=== PATIENT | male | born 1945 | race Caucasian/White ===

== ENCOUNTER → 2016-07-21 | Outpatient (CLI) | payer OTHER ==
[~2016-07-21] MED LIST: ALPR-411 PO; ASPCH81X PO; FLV400 PO; FLVUNK PO; Lisinopril/Hctz PO; MAGN1CAP2 PO; MULT-506 PO; NRV5 PO; THM100 PO; [UNRECOGNIZED DRUG - CODE] PO
[2016-07-21 16:18] LABS: ALB/GLOB RATIO 1.3 (0.9-2); AST/SGOT 16 U/L (15-37); BLOOD UREA NITROGEN 23 mg/dl (7-18); BUN/CREATININE RATIO 13.8 (10-20); CALCIUM 8.7 mg/dl (8.5-10.1); CARBON DIOXIDE 24 mmol/L (21-32); CHLORIDE 103 mmol/L (98-107); CHOLESTEROL 116 mg/dl (0-200); GLUCOSE 93 mg/dl (70-99); POTASSIUM 4.6 mmol/L (3.5-5.1); SODIUM 135 mmol/L (136-145); TRIGLYCERIDES 137 mg/dl (0-150); VERY LOW DENSITY LIPOPROT CALC 27 mg/dl
[2016-07-21 16:23] LABS: ALKALINE PHOSPHATASE 68 U/L (45-117); ALT/SGPT 22 U/L (12-78); CHOLESTEROL/HDL RATIO 2.9; HDL CHOLESTEROL 40 mg/dl
--- NOTE | 2016-10-09 09:45 | CODING QUERY MEDICAL NECESSITY ---
CQSUPPORTING DIAGNOSIS NEEDED A supporting diagnosis is required for the test/procedure performed on this patient in order for us to be reimbursed by the patient's insurance. Please provide a supporting diagnosis for the following test/procedure listed below next to the test name along with your signature. *If there is no additional diagnosis for this patient that would support the following test/procedure please document that below next to the test/procedure. Test(s)/Procedure(s) that require a supporting diagnosis: DOS 07/21/16 PROSTATE SPECIFIC TEST Provider Signature: Date: Thank you Marline Todd [employer] Once completed, please kindly fax back to [phone] For questions please call [phone]
== END | disposition home or self-care (01) ==
LOC: C.LABMFLN 07:47
PROVIDERS: ATTEND Family Medicine
DX: I10 Essential (primary) hypertension (principal); E78.00 Pure hypercholesterolemia, unspecified; G47.00 Insomnia, unspecified; Z12.5 Encounter for screening for malignant neoplasm of prostate

== ENCOUNTER → 2017-12-21 | Outpatient (CLI) | payer OTHER ==
[~2017-12-21] MED LIST changes: +THIA100T27 PO; -THM100 PO
[2017-12-21 14:10] LABS: ALT/SGPT 19 U/L (12-78); BLOOD UREA NITROGEN 13 mg/dl (7-18); CALCIUM 8.8 mg/dl (8.5-10.1); CARBON DIOXIDE 26 mmol/L (21-32); CHOLESTEROL 105 mg/dl (0-200); CREATININE 1.29 mg/dl (0.60-1.40); GLUCOSE 95 mg/dl (70-99); LDL CHOLESTEROL CALCULATED 37 mg/dl; POTASSIUM 4.6 mmol/L (3.5-5.1); SODIUM 126 mmol/L (136-145)
== END | disposition home or self-care (01) ==
LOC: C.LABMFLN 07:08
PROVIDERS: ATTEND Family Medicine
DX: I10 Essential (primary) hypertension (principal); E78.00 Pure hypercholesterolemia, unspecified; Z12.5 Encounter for screening for malignant neoplasm of prostate

== ENCOUNTER → 2017-12-23 | Outpatient (CLI) | payer OTHER | END | disposition home or self-care (01) | LOC: C.LABMFLN 08:34 | PROVIDERS: ATTEND Family Medicine | DX: E87.1 Hypo-osmolality and hyponatremia (principal) ==

== ENCOUNTER → 2017-12-25 | Outpatient (CLI) | payer OTHER | END | disposition home or self-care (01) | LOC: C.LABMFLN 07:02 | PROVIDERS: ATTEND Family Medicine | DX: E22.2 Syndrome of inappropriate secretion of antidiuretic hormone (principal) ==

== ENCOUNTER → 2017-12-31 | Outpatient (CLI) | payer OTHER | END | disposition home or self-care (01) | LOC: C.LABMFLN 07:01 | PROVIDERS: ATTEND Family Medicine | DX: E87.1 Hypo-osmolality and hyponatremia (principal) ==

== ENCOUNTER → 2018-01-19 | Outpatient (CLI) | payer OTHER ==
[2018-01-19 14:17] LABS: BLOOD UREA NITROGEN 12 mg/dl (7-18); CARBON DIOXIDE 27 mmol/L (21-32); CREATININE 1.28 mg/dl (0.60-1.40); GLUCOSE 106 mg/dl (70-99); POTASSIUM 4.2 mmol/L (3.5-5.1); SODIUM 132 mmol/L (136-145)
[2018-01-19 19:04] LABS: ALBUMIN 3.8 gm/dl (3.4-5.0); TOTAL PROTEIN 6.7 gm/dl (6.4-8.2)
== END | disposition home or self-care (01) ==
LOC: C.LABMFLN 07:02
PROVIDERS: ATTEND Family Medicine
DX: F10.20 Alcohol dependence, uncomplicated (principal); E87.1 Hypo-osmolality and hyponatremia

== ENCOUNTER 2025-01-23 19:48 | Inpatient (IN) ==
[2025-01-23 20:08] LABS: Hematocrit (blood only) 30.1 % (42.0-52.0); Hemoglobin 10.0 g/dl (14.0-18.0); Immature Granulocytes # (auto) 0.03 K/uL (0.01-0.20); Immature Granulocytes % (auto) 0.4 %; Mean Corpuscular Hemoglobin 31.4 pg (25.0-34.0); Mean Corpuscular Volume 94.7 fL (80.0-100.0); Platelet Count 271 K/uL (130-400); RDW Standard Deviation 47.3 fL (36.4-46.3); Red Blood Count 3.18 M/uL (4.70-6.10); White Blood Count 7.25 K/ul (4.8-10.8)
--- NOTE | 2025-01-23 20:17 | Emergency Department Note ---
Impression & Plan Syncope and collapse, SHELLY (acute kidney injury), Bradycardia ED Provider Note NAME: QUEENIE CAIN AGE: 79 SEX: M : 1945 ARRIVES VIA: Ambulance INFORMANT: Patient, ED PROVIDER(S): Austen Yousif MD CHIEF COMPLAINT: Syncope MEDICAL DECISION MAKING: Patient presents due to concern for syncope. The patient may have an element of positional syncope but the patient did not have any prodromal symptoms. No tongue biting or incontinence. IV was established and blood work was obtained along with an EKG. Patient is noted to be bradycardic which may also be contributory. The patient's BSG was 109 prior to arrival. Patient's blood work shows a normal white count hemoglobin of 10. Platelet count is unremarkable. Patient's kidney function with likely SHELLY with creatinine 2.41. TSH is low but free T4 also low may also be contributory. Troponin negative. Chest x-ray obtained and unremarkable. Given the patient's SHELLY and syncope the patient would benefit from admission. 1 L of IV fluids ordered. I did speak with Dr. Jean-Baptiste and the patient was admitted to the medicine service. Discussion w/ other healthcare providers: Dr. Bermudez inpatient medicine service Prior /Outside records reviewed: None Differential diagnosis: Diagnostics, as interpreted by me: ECG: Sinus bradycardia, rate of 46, normal intervals, normal axis no ST elevations Cardiac monitoring: An order was placed for continuous cardiac monitoring. The monitor shows a rate of 52 with sinus rhythm. Patient was placed on pulse oximetry Medical decision rules: None Imaging studies: I informally interpreted the patient's chest x-ray does not show obvious pneumonia with formal report to follow. HPI: Pt is a 79 yo male with PMH of CKD stage 3, HTN, hx of squamous cell oropharyngeal cancer, and hx of seizure following tooth extraction who presents with concern after syncopal episode at home. Pt states he was assisting his from the commode, he bent forward and as he stood up he passed out. Pt denies injury from falling when he lost consciousness. He denies any presyncopal events such as dizziness, SOB, or chest pain. Pt states he has had 2 episode of syncope in the past, the first one was in the late 1960's and the last was 7-8 years ago. Pt saw he PCP a couple weeks after the last episode, but was no worked up. Pt does not recall having a seizure and does not know if he takes medication for seizure prevention. Pt denies hx of cardiac issues, but has been told he has a slow heart rate in the past. He does not recall any interventions for bradycardia and does not follow with cardiology. Pt states he has been feeling well over the last few weeks and denies illness, fever/chills, chest pain, SOB, extremity numbness/tingling, abdominal pain, N/V/D/C, dysuria, headaches or vertigo. Pt endorses a hx of tobacco and alcohol use, but quit both substances approx 5 years ago. Pt denies any recreational substance use. Pt states he has been eating and drinking well. He has been working to gain some weight and he has recently gained 2 lbs. Pt confirms he is taking amlodipine, aspirin, atorvastatin, and folic acid. He is unsure about taking divalproex and donepezil or what he would be taking them for. PAST MEDICAL HISTORY: See Below PAST SURGICAL HISTORY: See Below SOCIAL HISTORY: See Below HOME MEDICATIONS: See Below ALLERGIES: See Below VITALS: See Below PHYSICAL EXAMINATION: GENERAL: NAD, non-toxic. EYE EXAM: Normal conjunctiva. PERRL, no anisocoria and EOM's grossly intact w/o pain. OROPHARYNX: Moist mucus membranes, grossly normal dentition. NECK: Trachea midline, no stridor. LUNGS: Clear to auscultation. Normal chest wall mechanics. HEART: NSR, no MRG. ABDOMEN: Abdomen soft, non-tender, no masses, no rebound or guarding. BACK: No CVA TTP. SKIN: No rashes and no bruising. UPPER EXTREMITIES: Upper extremities are grossly normal. LOWER EXTREMITIES: Grossly normal, no edema. NEURO EXAM: Awake and alert, follows commands, no obvious facial asymmetry, normal speech, moves all 4 extremities. Past Med/Surg History Problem List (Updated 01/24/25 @ 14:09 by Austen Yousif MD) Bradycardia (Acute) SHELLY (acute kidney injury) (Acute) Hypomagnesemia Acute kidney injury superimposed on CKD Syncope and collapse (Acute) Hypercholesterolemia CKD stage G3b/A1, GFR 30-44 and albumin creatinine ratio <30 mg/g Hypotension Squamous cell carcinoma of oropharynx Encounter for pre-operative examination Impaired fasting glucose Hypertension Medical History Anemia Seizure during tooth extraction done with local-- had grand mal seizure/was admitted to hospital and then had teeth extraction without issue-- per patient, was told it was likely a reaction to the epinephrine* Lesion of soft palate Stage 3 chronic kidney disease due to benign hypertension Surgical History H/O oral surgery Family History Father Hypertension Cardiac disorder Myocardial infarction Mother Anxiety Depression Grandfather (Maternal) Lung cancer Other No family history of adverse response to anesthesia No family history of bleeding disorder Denies family history of Ovarian cancer Prostate cancer Breast cancer Social History Smoking Status: Former smoker Tobacco Type: Cigarettes Age Started Using Tobacco: 26; packs per day: 0.50; Cigarettes Per Day: 0.50 ppd x 40 years; Second Hand Exposure: No; Do You Dip or Chew Tobacco: No; Hx Alcohol Use: No Hx Substance Use: No Preferred Language: Nepali Communication Ability: Effective Visual Impairment: Limited Hearing Ability: Normal Play Therapist Required: No Beliefs That Will Affect Care: None marital status: Current Living Situation: Spouse current occupational status: retired How many Children do You have: 2 Other Information That Helps Us Care for You: No Feels Safe at Home: Yes Safety Concerns: Feels Safe At This Time Childhood Exposure to Second-Hand Smoke: Yes (father smoked a pipe) Diet: regular Diet Comment: Regular diet caffeine: Yes (Coffee ) during the past year weight has: decreased > 10 lbs Dental Care, Regularly: No Physical Activity Frequency: Daily Seatbelt Use: always Sunscreen Use: Yes Do you think of yourself as: straight/heterosexual Assistive Devices: None Allergies Allergies Allergy/AdvReac Type Severity Reaction Status Date / Time epinephrine Allergy Intermediate seizure Verified 01/23/25 21:54 (see comments) procaine Allergy Unknown seizure Verified 01/23/25 21:54 (see comments) Home Meds Home Medications Medication Instructions Recorded Confirmed aspirin 81 mg chewable tablet 81 mg PO HS 01/23/25 01/23/25 donepezil 10 mg tablet 10 mg PO DAILY 01/23/25 01/23/25 Previous Rx's Medication Instructions Recorded multivitamin 1 tab PO QAM #90 tabs 10/17/19 amlodipine 5 mg tablet 5 mg PO DAILY #90 tabs 07/18/20 thiamine HCl (vitamin B1) 100 mg 100 mg PO QAM #90 tabs 10/19/20 tablet folic acid 1 mg tablet See Rx Instructions .Route 02/28/21 .COMPLEX #90 tabs labetalol 100 mg tablet 100 mg PO BID #180 tabs 03/28/21 atorvastatin 40 mg tablet 40 mg PO HS #90 tabs 04/15/21 Results & Data (ED) Vital Signs Vital Signs - 24 hr 01/23/25 19:51 01/23/25 19:51 01/23/25 19:56 Temperature Temperature Source Pulse Rate - Lying Pulse Rate - Sitting Pulse Rate - Standing Pulse Rate 46 L Pulse Rate [Apical] Pulse Rate [Finger] Pulse Rate from SpO2 Sensor Pulse Rhythm [Apical] Respiratory Rate Respiratory Effort / Characteristics Respiratory Depth Respiratory Pattern Blood Pressure - Lying Blood Pressure - Sitting Blood Pressure- Standing Blood Pressure Blood Pressure [Left Arm] Blood Pressure [Right Arm] Blood Pressure Mean Blood Pressure Mean [Left Arm] Blood Pressure Mean [Right Arm] Blood Pressure Position [Left Arm] Pulse Oximetry 98 98 Oxygen Delivery Method Room Air Room Air Sepsis Recent Fever Within 48 Hours Sepsis New/Unexplained Change in Mental Status Sepsis Action Taken by Nursing EWS Level of Consciousness - Last Result EWS Temperature - Last Result EWS Respiratory Rate - Last Result EWS Oxygen Saturation - Last Result EWS Oxygen in Use - Last Result EWS Score EWS Clinical Risk 01/23/25 19:58 01/23/25 20:00 01/23/25 20:01 Temperature 36.7 C Temperature Source Oral Pulse Rate - Lying Pulse Rate - Sitting Pulse Rate - Standing Pulse Rate 50 L 51 L Pulse Rate [Apical] Pulse Rate [Finger] Pulse Rate from SpO2 Sensor 51 L Pulse Rhythm [Apical] Respiratory Rate 14 15 Respiratory Effort / Characteristics Non-Labored Spontaneous Respiratory Depth Normal Respiratory Pattern Regular Blood Pressure - Lying Blood Pressure - Sitting Blood Pressure- Standing Blood Pressure 147/61 H 147/61 H 133/72 Blood Pressure [Left Arm] Blood Pressure [Right Arm] Blood Pressure Mean 89 89 103 Blood Pressure Mean [Left Arm] Blood Pressure Mean [Right Arm] Blood Pressure Position [Left Arm] Pulse Oximetry 98 97 Oxygen Delivery Method Room Air Sepsis Recent Fever Within 48 Hours No Sepsis New/Unexplained Change in Mental Status N/A Sepsis Action Taken by Nursing No Action Required EWS Level of Consciousness - Last Result EWS Temperature - Last Result EWS Respiratory Rate - Last Result EWS Oxygen Saturation - Last Result EWS Oxygen in Use - Last Result EWS Score EWS Clinical Risk 01/23/25 20:33 01/23/25 20:45 01/23/25 21:30 Temperature Temperature Source Pulse Rate - Lying Pulse Rate - Sitting Pulse Rate - Standing Pulse Rate 49 L 48 L 48 L Pulse Rate [Apical] Pulse Rate [Finger] Pulse Rate from SpO2 Sensor 49 L 48 L 46 L Pulse Rhythm [Apical] Respiratory Rate 18 16 16 Respiratory Effort / Characteristics Respiratory Depth Respiratory Pattern Blood Pressure - Lying Blood Pressure - Sitting Blood Pressure- Standing Blood Pressure 126/58 L 117/57 L Blood Pressure [Left Arm] Blood Pressure [Right Arm] Blood Pressure Mean 80 77 Blood Pressure Mean [Left Arm] Blood Pressure Mean [Right Arm] Blood Pressure Position [Left Arm] Pulse Oximetry 97 97 96 Oxygen Delivery Method Sepsis Recent Fever Within 48 Hours Sepsis New/Unexplained Change in Mental Status Sepsis Action Taken by Nursing EWS Level of Consciousness - Last Result EWS Temperature - Last Result EWS Respiratory Rate - Last Result EWS Oxygen Saturation - Last Result EWS Oxygen in Use - Last Result EWS Score EWS Clinical Risk 01/23/25 22:15 01/23/25 22:55 01/23/25 23:00 Temperature Temperature Source Pulse Rate - Lying 53 L Pulse Rate - Sitting 52 L Pulse Rate - Standing 65 Pulse Rate 51 L Pulse Rate [Apical] 55 L Pulse Rate [Finger] Pulse Rate from SpO2 Sensor 51 L Pulse Rhythm [Apical] Respiratory Rate 19 17 Respiratory Effort / Characteristics Non-Labored Spontaneous Respiratory Depth Normal Respiratory Pattern Regular Blood Pressure - Lying 124/61 Blood Pressure - Sitting 123/55 L Blood Pressure- Standing 118/63 Blood Pressure 120/94 Blood Pressure [Left Arm] Blood Pressure [Right Arm] 117/78 Blood Pressure Mean 102 Blood Pressure Mean [Left Arm] Blood Pressure Mean [Right Arm] 91 Blood Pressure Position [Left Arm] Pulse Oximetry 97 97 Oxygen Delivery Method Room Air Sepsis Recent Fever Within 48 Hours Sepsis New/Unexplained Change in Mental Status Sepsis Action Taken by Nursing EWS Level of Consciousness - Last Result EWS Temperature - Last Result EWS Respiratory Rate - Last Result EWS Oxygen Saturation - Last Result EWS Oxygen in Use - Last Result EWS Score EWS Clinical Risk 01/23/25 23:53 01/24/25 00:00 01/24/25 00:30 Temperature Temperature Source Pulse Rate - Lying Pulse Rate - Sitting Pulse Rate - Standing Pulse Rate 58 L 51 L Pulse Rate [Apical] 52 L Pulse Rate [Finger] Pulse Rate from SpO2 Sensor Pulse Rhythm [Apical] Regular Respiratory Rate 17 Respiratory Effort / Characteristics Non-Labored Spontaneous Respiratory Depth Normal Respiratory Pattern Regular Blood Pressure - Lying Blood Pressure - Sitting Blood Pressure- Standing Blood Pressure Blood Pressure [Left Arm] Blood Pressure [Right Arm] 109/66 Blood Pressure Mean Blood Pressure Mean [Left Arm] Blood Pressure Mean [Right Arm] 80 Blood Pressure Position [Left Arm] Pulse Oximetry 95 Oxygen Delivery Method Room Air Sepsis Recent Fever Within 48 Hours Sepsis New/Unexplained Change in Mental Status Sepsis Action Taken by Nursing EWS Level of Consciousness - Last Result EWS Temperature - Last Result EWS Respiratory Rate - Last Result EWS Oxygen Saturation - Last Result EWS Oxygen in Use - Last Result EWS Score EWS Clinical Risk 01/24/25 00:53 01/24/25 02:37 01/24/25 02:37 Temperature 36.2 C L 36.4 C L Temperature Source Oral Oral Pulse Rate - Lying Pulse Rate - Sitting Pulse Rate - Standing Pulse Rate Pulse Rate [Apical] Pulse Rate [Finger] 53 L 54 L Pulse Rate from SpO2 Sensor Pulse Rhythm [Apical] Respiratory Rate 18 16 Respiratory Effort / Characteristics Respiratory Depth Normal Respiratory Pattern Blood Pressure - Lying Blood Pressure - Sitting Blood Pressure- Standing Blood Pressure Blood Pressure [Left Arm] 118/66 Blood Pressure [Right Arm] 141/66 H Blood Pressure Mean Blood Pressure Mean [Left Arm] 83 Blood Pressure Mean [Right Arm] 91 Blood Pressure Position [Left Arm] Semi-fowlers Pulse Oximetry 95 97 Oxygen Delivery Method Room Air Room Air Sepsis Recent Fever Within 48 Hours Sepsis New/Unexplained Change in Mental Status Sepsis Action Taken by Nursing EWS Level of Consciousness - Last Result Spontaneously Alert EWS Temperature - Last Result 36.2 EWS Respiratory Rate - Last Result 18 EWS Oxygen Saturation - Last Result 95 EWS Oxygen in Use - Last Result No EWS Score 1 EWS Clinical Risk Low Risk 01/24/25 06:45 01/24/25 07:32 01/24/25 07:33 Temperature 36.4 C L Temperature Source Oral Pulse Rate - Lying Pulse Rate - Sitting Pulse Rate - Standing Pulse Rate 48 L Pulse Rate [Apical] Pulse Rate [Finger] 43 L Pulse Rate from SpO2 Sensor Pulse Rhythm [Apical] Respiratory Rate 18 Respiratory Effort / Characteristics Respiratory Depth Respiratory Pattern Blood Pressure - Lying Blood Pressure - Sitting Blood Pressure- Standing Blood Pressure Blood Pressure [Left Arm] 151/75 H Blood Pressure [Right Arm] Blood Pressure Mean Blood Pressure Mean [Left Arm] 100 Blood Pressure Mean [Right Arm] Blood Pressure Position [Left Arm] Pulse Oximetry 94 Oxygen Delivery Method Room Air Sepsis Recent Fever Within 48 Hours Sepsis New/Unexplained Change in Mental Status Sepsis Action Taken by Nursing EWS Level of Consciousness - Last Result Spontaneously Alert EWS Temperature - Last Result 36.4 EWS Respiratory Rate - Last Result 18 EWS Oxygen Saturation - Last Result 94 EWS Oxygen in Use - Last Result No EWS Score 2 EWS Clinical Risk Low Risk 01/24/25 08:50 01/24/25 11:20 01/24/25 11:22 Temperature 36.6 C Temperature Source Oral Pulse Rate - Lying 52 L Pulse Rate - Sitting 55 L Pulse Rate - Standing 67 Pulse Rate Pulse Rate [Apical] Pulse Rate [Finger] 54 L Pulse Rate from SpO2 Sensor Pulse Rhythm [Apical] Respiratory Rate 18 Respiratory Effort / Characteristics Respiratory Depth Respiratory Pattern Blood Pressure - Lying 153/88 H Blood Pressure - Sitting 146/61 H Blood Pressure- Standing 146/70 H Blood Pressure Blood Pressure [Left Arm] 146/61 H Blood Pressure [Right Arm] Blood Pressure Mean Blood Pressure Mean [Left Arm] 89 Blood Pressure Mean [Right Arm] Blood Pressure Position [Left Arm] Pulse Oximetry 99 Oxygen Delivery Method Room Air Sepsis Recent Fever Within 48 Hours Sepsis New/Unexplained Change in Mental Status Sepsis Action Taken by Nursing EWS Level of Consciousness - Last Result Spontaneously Alert EWS Temperature - Last Result 36.6 EWS Respiratory Rate - Last Result 18 EWS Oxygen Saturation - Last Result 99 EWS Oxygen in Use - Last Result No EWS Score 0 EWS Clinical Risk Low Risk Home Medications Current Medication List: was personally reviewed by me Laboratory Data Attestation: I reviewed the patient's lab results. 01/24/25 05:21 01/24/25 05:21 Lab Results 01/23/25 01/23/25 01/24/25 Range/Units 19:50 22:36 05:21 WBC 7.25 5.65 (4.8-10.8) K/ul RBC 3.18 L 3.08 L (4.70-6.10) M/uL Hgb 10.0 L 9.6 L (14.0-18.0) g/dl Hct 30.1 L 29.3 L (42.0-52.0) % MCV 94.7 95.1 (80.0-100.0) fL MCH 31.4 31.2 (25.0-34.0) pg MCHC 33.2 32.8 (32.0-36.0) g/dL RDW Std Deviation 47.3 H 48.7 H (36.4-46.3) fL RDW Coeff of Herminio 13.6 14.0 (11.5-14.5) % Plt Count 271 255 (130-400) K/uL MPV 9.8 10.2 (9.4-12.4) fL Immature Gran % (Auto) 0.4 0.2 % Neut % (Auto) 42.1 55.9 % Lymph % (Auto) 40.3 29.4 % [place] % (Auto) 14.1 12.2 % Eos % (Auto) 2.5 1.8 % Baso % (Auto) 0.6 0.5 % Neut # (Auto) 3.06 3.16 (1.40-6.50) K/uL Lymph # (Auto) 2.92 1.66 (1.20-3.40) K/uL [place] # (Auto) 1.02 H 0.69 H (0.11-0.59) K/uL Eos # (Auto) 0.18 0.10 (0.00-0.50) K/uL Baso # (Auto) 0.04 0.03 (0.00-0.20) K/uL Immature Gran # (Auto) 0.03 0.01 (0.01-0.20) K/uL Sodium 139 141 (136-145) mmol/L Potassium 4.3 4.6 (3.5-5.1) mmol/L Chloride 108 H 113 H (98-107) mmol/L Carbon Dioxide 23 23 (21-32) mmol/L Anion Gap 8 5 (3-11) BUN 49 H 43 H (6-23) mg/dl Creatinine 2.41 H 2.19 H (0.6-1.4) mg/dl Est Cr Clr Drug Dosing 22.5 23.0 ml/min eGFR 26.81 30.07 BUN/Creatinine Ratio 20.3 H 19.6 (10-20) Glucose 113 H 104 H (70-99(Fasting)) mg/dl Calcium 9.0 8.8 (8.6-10.3) mg/dl Magnesium 1.8 2.1 (1.7-2.4) mg/dl Total Bilirubin 0.3 (0.2-1.0) mg/dl AST 15 (13-39) U/L ALT 13 (7-52) U/L Alkaline Phosphatase 71 (34-104) U/L Troponin I High Sens 8.0 (0-20) pg/ml Total Protein 6.4 (6.0-8.3) gm/dl Albumin 3.6 (3.4-5.0) gm/dl Globulin 2.8 (2.5-4.0) gm/dl Albumin/Globulin Ratio 1.3 (0.9-2) TSH 4.631 H (0.300-4.500) uIu/ml Free T4 0.58 L (0.61-1.60) ng/dl Urine Color Urine Appearance (Clear) Urine pH (4.5-7.5) Ur Specific [place] (1.000-1.030) Urine Protein (Negative) Urine Glucose (UA) (Negative) Urine Ketones (Negative) Urine Blood (Negative) Urine Nitrite (Negative) Urine Bilirubin (Negative) Urine Urobilinogen (Negative) Ur Leukocyte Esterase (Negative) Urine WBC (Auto) (0-5) /hpf Urine RBC (Auto) (0-2) /hpf U Hyaline Cast (Auto) (0-2) /lpf U Epithel Cells (Auto) (0-2) /hpf Urine Bacteria (Auto) (None Seen) Urine Comment Nasal Screen MRSA (PCR) Negative (Negative) 01/24/25 Range/Units 05:45 WBC (4.8-10.8) K/ul RBC (4.70-6.10) M/uL Hgb (14.0-18.0) g/dl Hct (42.0-52.0) % MCV (80.0-100.0) fL MCH (25.0-34.0) pg MCHC (32.0-36.0) g/dL RDW Std Deviation (36.4-46.3) fL RDW Coeff of Herminio (11.5-14.5) % Plt Count (130-400) K/uL MPV (9.4-12.4) fL Immature Gran % (Auto) % Neut % (Auto) % Lymph % (Auto) % [place] % (Auto) % Eos % (Auto) % Baso % (Auto) % Neut # (Auto) (1.40-6.50) K/uL Lymph # (Auto) (1.20-3.40) K/uL [place] # (Auto) (0.11-0.59) K/uL Eos # (Auto) (0.00-0.50) K/uL Baso # (Auto) (0.00-0.20) K/uL Immature Gran # (Auto) (0.01-0.20) K/uL Sodium (136-145) mmol/L Potassium (3.5-5.1) mmol/L Chloride (98-107) mmol/L Carbon Dioxide (21-32) mmol/L Anion Gap (3-11) BUN (6-23) mg/dl Creatinine (0.6-1.4) mg/dl Est Cr Clr Drug Dosing ml/min eGFR BUN/Creatinine Ratio (10-20) Glucose (70-99(Fasting)) mg/dl Calcium (8.6-10.3) mg/dl Magnesium (1.7-2.4) mg/dl Total Bilirubin (0.2-1.0) mg/dl AST (13-39) U/L ALT (7-52) U/L Alkaline Phosphatase (34-104) U/L Troponin I High Sens (0-20) pg/ml Total Protein (6.0-8.3) gm/dl Albumin (3.4-5.0) gm/dl Globulin (2.5-4.0) gm/dl Albumin/Globulin Ratio (0.9-2) TSH (0.300-4.500) uIu/ml Free T4 (0.61-1.60) ng/dl Urine Color Yellow Urine Appearance Clear (Clear) Urine pH 5.5 (4.5-7.5) Ur Specific [place] 1.010 (1.000-1.030) Urine Protein Negative (Negative) Urine Glucose (UA) Negative (Negative) Urine Ketones Negative (Negative) Urine Blood Negative (Negative) Urine Nitrite Positive A (Negative) Urine Bilirubin Negative (Negative) Urine Urobilinogen Negative (Negative) Ur Leukocyte Esterase 2+ H (Negative) Urine WBC (Auto) 21-50 H (0-5) /hpf Urine RBC (Auto) 0-2 (0-2) /hpf U Hyaline Cast (Auto) 0-2 (0-2) /lpf U Epithel Cells (Auto) 0-2 (0-2) /hpf Urine Bacteria (Auto) 4+ H (None Seen) Urine Comment Nasal Screen MRSA (PCR) (Negative) Administered Medications Donepezil HCl (Donepezil Hcl 10 Mg Tab) 10 mg PO DAILY ENDER Stop: 02/23/25 08:59 Last Admin: 01/24/25 08:05 Dose: 10 mg Documented By: NIMISHA Folic Acid (Folic Acid 1 Mg Tab) 1 mg PO QAM ENDER Stop: 02/23/25 08:59 Last Admin: 01/24/25 08:05 Dose: 1 mg Documented By: NIMISHA Ceftriaxone Sodium (Rocephin) 2,000 mg in 50 mls @ 100 mls/hr IV Q24H ENDER Stop: 01/29/25 10:59 Last Infusion: 01/24/25 12:15 Dose: Infused Documented By: Admin: 01/24/25 11:45 Dose: 100 mls/hr Documented By: NIMISHA Thiamine HCl (Thiamine Hcl 100 Mg Tab) 100 mg PO QAM ENDER Stop: 02/23/25 08:59 Last Admin: 01/24/25 08:05 Dose: 100 mg Documented By: NIMISHA Discontinued Medications Amlodipine Besylate (Amlodipine Besylate 5 Mg Tab) 5 mg PO DAILY NEDER Stop: 02/23/25 08:59 Last Admin: 01/24/25 08:05 Dose: 5 mg Documented By: NIMISHA Magnesium Sulfate/Dextrose (Magnesium Sulfate / D5w) 1 gm in 100 mls @ 50 mls/hr IV ONE ONE Stop: 01/23/25 23:34 Last Infusion: 01/24/25 00:16 Dose: Infused Documented By: Admin: 01/23/25 22:16 Dose: 50 mls/hr Documented By: QUE Sodium Chloride (Nss) 1,000 mls @ 999 mls/hr IV .Q1H1M ONE Stop: 01/23/25 22:40 Last Infusion: 01/23/25 23:45 Dose: Infused Documented By: Admin: 01/23/25 22:16 Dose: 999 mls/hr Documented By: QUE Lactated Ringer's (Lr) 1,000 mls @ 80 mls/hr IV .[id number] ENDER Stop: 01/24/25 10:29 Last Infusion: 01/24/25 10:32 Dose: Infused Documented By: Admin: 01/23/25 23:50 Dose: 80 mls/hr Documented By: KLS Imaging Data Radiologist's Impression: Chest X-Ray 01/23/25 19:51 Exam(s): XR CXR 1 VIEW EXAM: XR Chest, 1 View CLINICAL HISTORY: Reason for exam: syncope. TECHNIQUE: Frontal view of the chest. COMPARISON: June 29, 2019 FINDINGS: Lungs: Unremarkable. No acute infiltration, atelectasis or mass. Pleural space: Unremarkable. No pneumothorax or pleural fluid. Heart: Unremarkable. No cardiomegaly. Mediastinum: Unremarkable. Normal mediastinal contour. Bones/joints: No acute findings. IMPRESSION: No acute findings in the chest. Electronically signed by: Benito Galindo MD 01/23/25 22:[address] 01/23/25 21:48 Exam(s): CT HEAD Without Contrast EXAM: CT Head Without Intravenous Contrast CLINICAL HISTORY: Reason for exam: syncope. TECHNIQUE: Axial computed tomography images of the head/brain without intravenous contrast. CTDI is 35.92 mGy and DLP is 546.36 mGy-cm. Automated exposure control was utilized for the study. A dose lowering technique was utilized adhering to the principles of ALARA. COMPARISON: CT head August 19, 2013. FINDINGS: Brain: Generalized cerebral volume loss. Extensive chronic, small vessel ischemic changes in the white matter. No acute edema, hemorrhage or abnormal mass-effect. Ventricles: Unremarkable. No ventriculomegaly. Bones/joints: Unremarkable. No acute fracture. Soft tissues: Unremarkable. Sinuses: Unremarkable as visualized. No acute sinusitis. Mastoid air cells: Unremarkable as visualized. No mastoid effusion. IMPRESSION: No acute findings in the head/brain. Electronically signed by: Benito Galindo MD 01/23/25 22:44 PM Discharge Plan Visit Data Chief Complaint: Syncope Stated Complaint: SYNCOPE ED Provider: Austen Yousif ED Midlevel Provider: Chelo Dueñas Discharge Problem: Syncope and collapse, SHELLY (acute kidney injury), Bradycardia Patient Disposition: Admitted As Inpatient Condition: Good Discharge Instructions Interventions: ED Discharge Assessment Last Done: 01/24/25 00:09
[2025-01-23 20:27] LABS: Alanine Aminotransferase 13.0 U/L (7-52); Albumin Globulin Ratio 1.3 (0.9-2); Alkaline Phosphatase 71.0 U/L (34-104); Anion Gap 8.0 (3-11); Bilirubin,Total 0.3 mg/dl (0.2-1.0); Blood Urea Nitrogen 49.0 mg/dl (6-23); Calcium 9.0 mg/dl (8.6-10.3); Carbon Dioxide 23.0 mmol/L (21-32); Chloride 108.0 mmol/L (98-107); Creatinine Clr Calc Pharmacy 22.5 ml/min; Globulin 2.8 gm/dl (2.5-4.0); Glucose 113.0 mg/dl (70-99(Fasting)); Magnesium 1.8 mg/dl (1.7-2.4); Potassium 4.3 mmol/L (3.5-5.1); Sodium 139.0 mmol/L (136-145); Total Protein 6.4 gm/dl (6.0-8.3)
[2025-01-23 20:41] LABS: Thyroid Stimulating Hormone 4.631 uIu/ml (0.300-4.500)
--- NOTE | 2025-01-23 22:09 | XRay Report ---
Exam(s): XR CXR 1 VIEW EXAM: XR Chest, 1 View CLINICAL HISTORY: Reason for exam: syncope. TECHNIQUE: Frontal view of the chest. COMPARISON: June 29, 2019 FINDINGS: Lungs: Unremarkable. No acute infiltration, atelectasis or mass. Pleural space: Unremarkable. No pneumothorax or pleural fluid. Heart: Unremarkable. No cardiomegaly. Mediastinum: Unremarkable. Normal mediastinal contour. Bones/joints: No acute findings. IMPRESSION: No acute findings in the chest. Electronically signed by: Benito Galindo MD 01/23/25 22:08 PM
[2025-01-23] MEDS: SODIUM CHLORIDE 0.9% 1,000 ML IV ONE (22:16)
[2025-01-23] MEDS: MAGNESIUM SULFATE / D5W 1 GM/100 ML BAG IV ONE (22:16)
--- NOTE | 2025-01-23 22:18 | History & Physical Report ---
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 Patient presented via EMS from [facility] after he went from sitting to standing and had a syncopal episode. He is being admitted for syncopal workup including telemetry monitoring, suspect orthostatic. #syncope - suspect orthostatic given patient went from sitting to standing, hypotensive (117/57), bradycardic (HR 46), clinically dry, laboratories appear hemoconcentrated. Mild SHELLY and hypomagnesemia noted below. No signs of acute infection on admission - no leukocytosis, afebrile. Troponin negative. - 1L NSS bolus ordered in ED; continue fluid resuscitation with LR at 80 mL/hr x 1L overnight - Head CT w/o con ordered - echocardiogram ordered - fall precautions - hold labetalol - orthostatic VS ordered - monitor on telemetry #SHELLY/hypomagnesemia - Cr increased from 1.87 to 2.41 (appears to be worsening over past few years), BUN 49, K+ 4.3, mag 1.8. Patient with dry mucus membranes, H&H elevated (hemoconcentrated). - UA ordered - IVF as above - 1 g IV mag on admission - trend BMP and mag #HTN - holding labetalol, continue amlodipine. #HLD - continue asa and statin #alcohol use disorder - hx of, currently denies use. Continue folic acid and thiamine. #hypothyroidism - no previous hx of. TSH 4.631, T4 0.58 on admission. 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 Patient presented via EMS from [facility] after he went from sitting to standing and had a syncopal episode. He is being admitted for syncopal workup including telemetry monitoring. Patient seen at bedside. He stated that he was visiting his and she needed help in the bathroom because she is weak so he went from sitting to standing and just passed out, nursing was at bedside and helped lower him to the ground. He denies any head strike. He stated he had no symptoms prior, denies any dizziness, chest pain, dyspnea prior to the episode. After the episode he did feel dizzy which is different for him from previous episodes. He has had episodes like this similar in the past a couple years ago when he went from sitting to standing however had no symptoms afterwards, so he was concerned and wanted to come in this evening. He has had no prior workups for this. He currently feels well at bedside. He stated he took all his blood pressure medications this morning, is due for evening labetalol. Stated that he had a good day of meals and fluid intake, does not feel dehydrated. He denies any dysuria, hematuria, flank pain. He denies any nicotine use. He was a former alcohol user however currently denies any symptoms. He wishes to be DNR/DNI. Allergies Allergy/AdvReac Type Severity Reaction Status Date / Time epinephrine Allergy Intermediate seizure Verified 01/23/25 21:54 (see comments) procaine Allergy Unknown seizure Verified 01/23/25 21:54 (see comments) Home Medications Medication Instructions Recorded Confirmed Type multivitamin 1 tab PO QAM #90 tabs 10/17/19 01/23/25 Rx amlodipine 5 mg tablet 5 mg PO DAILY #90 tabs 07/18/20 01/23/25 Rx thiamine HCl (vitamin B1) 100 mg 100 mg PO QAM #90 tabs 10/19/20 01/23/25 Rx tablet folic acid 1 mg tablet See Rx Instructions .Route 02/28/21 01/23/25 Rx .COMPLEX #90 tabs labetalol 100 mg tablet 100 mg PO BID #180 tabs 03/28/21 01/23/25 Rx atorvastatin 40 mg tablet 40 mg PO HS #90 tabs 04/15/21 01/23/25 Rx aspirin 81 mg chewable tablet 81 mg PO HS 01/23/25 01/23/25 History donepezil 10 mg tablet 10 mg PO DAILY 01/23/25 01/23/25 History Past Med/Surg History Problem List (Updated 01/23/25 @ 22:23 by Abimbola Salgado PA-C) Hypomagnesemia Acute kidney injury superimposed on CKD Syncope and collapse Hypercholesterolemia CKD stage G3b/A1, GFR 30-44 and albumin creatinine ratio <30 mg/g Hypotension Squamous cell carcinoma of oropharynx Encounter for pre-operative examination Impaired fasting glucose Hypertension Medical History Anemia Hypercholesterolemia Hypertension Lesion of soft palate Seizure Stage 3 chronic kidney disease due to benign hypertension Surgical History H/O oral surgery Family History Father Hypertension Cardiac disorder Myocardial infarction Mother Anxiety Depression Grandfather (Maternal) Lung cancer Other No family history of adverse response to anesthesia No family history of bleeding disorder Denies family history of Ovarian cancer Prostate cancer Breast cancer Social History (Updated 07/18/20 @ 13:24 by Meagan Oconnell) Smoking Status: Former smoker Tobacco Type: Cigarettes Age Started Using Tobacco: 26; packs per day: 0.50; Cigarettes Per Day: 0.50 ppd x 40 years; Second Hand Exposure: Yes (Father smoked ); Do You Dip or Chew Tobacco: No; Hx Alcohol Use: Yes Alcohol type: hard liquor Alcohol Intake Frequency: 2-3 x/Week Hx Substance Use: No Preferred Language: Latvian Communication Ability: Effective Visual Impairment: Limited Hearing Ability: Normal Sales Operations Assistant Required: No Beliefs That Will Affect Care: None marital status: Current Living Situation: Spouse current occupational status: retired How many Children do You have: 2 Feels Safe at Home: Yes Childhood Exposure to Second-Hand Smoke: Yes (father smoked a pipe) Diet: regular Diet Comment: Regular diet caffeine: Yes (Coffee ) during the past year weight has: decreased > 10 lbs Dental Care, Regularly: No Physical Activity Frequency: Daily Seatbelt Use: always Sunscreen Use: Yes Do you think of yourself as: straight/heterosexual Assistive Devices: Glasses Review of Systems Review of Systems: see HPI Physical Exam Physical Exam: The patient is awake, alert and oriented 3, well developed and well nourished, normocephalic and atraumatic, in no acute distress. Non-toxic appearing. HEENT- EOMI, mucous membranes dry. Hearing grossly intact. Heart-normal S1 and S2. No murmurs, rubs or gallops. Lungs-clear bilaterally, no respiratory distress, no accessory muscle use. Abdomen-normal bowel sounds and soft. No ascites noted. Non-tender. Extremities- no clubbing, cyanosis, or edema. Rheumatologic-normal range of motion. Psychiatric-normal affect. Results & Data Results & Data Vital Signs (Past 12 Hours) Vital Signs Temp Pulse Resp BP Pulse Ox O2 Del Method 01/23/25 21:30 48 L 16 117/57 L 96 01/23/25 20:45 48 L 16 97 01/23/25 20:33 49 L 18 126/58 L 97 01/23/25 20:01 133/72 01/23/25 20:00 51 L 15 147/61 H 97 01/23/25 19:58 36.7 C 50 L 14 147/61 H 98 Room Air 01/23/25 19:56 46 L 01/23/25 19:51 98 Room Air 01/23/25 19:51 98 Room Air Laboratory Results reviewed cbc, cmp, mag, troponin Diagnostic Findings reviewed CXR ordered head ct Medications Administered ED - NSS 1L bolus Admission - LR @ 80 ml/hr x1L, 1G IV mag ECG Additional Comments: ordered Code Status & VTE Plan Code Status dnr/dni VTE Prophylaxis Plan VTE Prophylaxis will be ordered: Yes Supervising Physician Co-Signing Physician Notes Attending addendum: I have physically seen this patient, have supervised the RONN's activities, and agree with the H&P unless as otherwise noted. Assessment and Plan: The patient is an 79-year-old male with past medical history including CKD stage III, hyperlipidemia, hypertension, squamous cell carcinoma of the uvula status post resection 2019, alcohol use disorder presently living at [facility]. He was brought to the ED by EMS from [facility] after he went from a sitting to standing and had recurrent syncopal episodes. Syncope- Differential including but not limited to: Orthostasis, dysrhythmia, medication induced, secondary to renal insufficiency. Most likely orthostasis due to volume depletion Status post 1 L normal saline bolus in the ED Continue fluid resuscitation with LR at 80 mL/h x [address] head without contrast The patient will be admitted to telemetry for serial cardiac enzymes, serial EKG's, cardiac rhythm monitoring and a 2-D echocardiogram with Dopplers. Hold labetalol due to significant bradycardia, with heart rate in the mid 40s while in the ED Orthostatic vital signs Acute kidney injury/hypomagnesemia Creatinine 2.41 on admission, with base 1.48 Magnesium 1.8 Order urinalysis, urine culture sensitivity IV fluids as above Give magnesium sulfate 1 g IV Follow serial BMP and magnesium levels Hypertension- Holding labetalol due to significant bradycardia Continue amlodipine Hyperlipidemia- Continue aspirin 81 mg in the evening, and atorvastatin 40 mg in the evening Alcohol use disorder- Patient denies current use Continue thiamine 100 mg daily and folic acid 1 mg daily Hypothyroidism- Mildly hypothyroid on screening laboratories from the ED Can be followed up in the outpatient setting PG Care Time/CCT Total # of Minutes Spent Total Time Spent with Patient: Total time spent is greater than 50% in coordination of care (as documented) at patient's floor/unit and/or counseling patient: Coding Level of Care Code 71719 INT INP/OBS CARE 3/75MIN Diagnoses Syncope and collapse R55 Acute kidney injury superimposed on CKD N17.9; N18.9 Hypomagnesemia E83.42 Hypertension I10
--- NOTE | 2025-01-23 22:46 | CT Scan Report ---
Exam(s): CT HEAD Without Contrast EXAM: CT Head Without Intravenous Contrast CLINICAL HISTORY: Reason for exam: syncope. TECHNIQUE: Axial computed tomography images of the head/brain without intravenous contrast. CTDI is 35.92 mGy and DLP is 546.36 mGy-cm. Automated exposure control was utilized for the study. A dose lowering technique was utilized adhering to the principles of ALARA. COMPARISON: CT head August 19, 2013. FINDINGS: Brain: Generalized cerebral volume loss. Extensive chronic, small vessel ischemic changes in the white matter. No acute edema, hemorrhage or abnormal mass-effect. Ventricles: Unremarkable. No ventriculomegaly. Bones/joints: Unremarkable. No acute fracture. Soft tissues: Unremarkable. Sinuses: Unremarkable as visualized. No acute sinusitis. Mastoid air cells: Unremarkable as visualized. No mastoid effusion. IMPRESSION: No acute findings in the head/brain. Electronically signed by: Benito Galindo MD 01/23/25 22:44 PM
[2025-01-23] MEDS: LACTATED RINGER'S 1,000 ML IV SCH (23:50)
[2025-01-24] MEDS ORDERED: ACETAMINOPHEN 325 MG TAB PO PRN (00:37)
[2025-01-24] MEDS ORDERED: ONDANSETRON INJ 2 MG/ML 2 ML VIAL IV PRN (00:37)
[2025-01-24] MEDS ORDERED: DOCUSATE SODIUM 100 MG CAP PO PRN (00:37)
[2025-01-24] MEDS ORDERED: MELATONIN 3 MG TAB PO PRN (00:37)
[2025-01-24 06:12] LABS: Appearance Urine Clear (Clear); Bacteria Urine Automated 4+ (None Seen); Cast Urine Automated 0-2 /lpf (0-2); Epithelial Cell Urine Auto 0-2 /hpf (0-2); Glucose Urine UA Negative (Negative); RBC Urine Automated 0-2 /hpf (0-2); WBC Urine Automated 21-50 /hpf (0-5)
[2025-01-24 07:06] LABS: Hematocrit (blood only) 29.3 % (42.0-52.0); Hemoglobin 9.6 g/dl (14.0-18.0); Immature Granulocytes # (auto) 0.01 K/uL (0.01-0.20); Immature Granulocytes % (auto) 0.2 %; Mean Corpuscular Hemoglobin 31.2 pg (25.0-34.0); Mean Corpuscular Volume 95.1 fL (80.0-100.0); Platelet Count 255 K/uL (130-400); RDW Standard Deviation 48.7 fL (36.4-46.3); Red Blood Count 3.08 M/uL (4.70-6.10); White Blood Count 5.65 K/ul (4.8-10.8)
[2025-01-24 07:26] LABS: Anion Gap 5.0 (3-11); Blood Urea Nitrogen 43.0 mg/dl (6-23); Calcium 8.8 mg/dl (8.6-10.3); Carbon Dioxide 23.0 mmol/L (21-32); Chloride 113.0 mmol/L (98-107); Creatinine Clr Calc Pharmacy 23.0 ml/min; Glucose 104.0 mg/dl (70-99(Fasting)); Magnesium 2.1 mg/dl (1.7-2.4); Potassium 4.6 mmol/L (3.5-5.1); Sodium 141.0 mmol/L (136-145)
[2025-01-24 07:33] VITALS: RESP 18
[2025-01-24] MEDS: DONEPEZIL HCL 10 MG TAB PO SCH (08:05)
[2025-01-24] MEDS: THIAMINE HCL 100 MG TAB PO SCH (08:05)
[2025-01-24] MEDS: FOLIC ACID 1 MG TAB PO SCH (08:05)
[2025-01-24] MEDS: cefTRIAXone SODIUM 2,000 MG/50 ML BAG IV SCH (11:45)
--- NOTE | 2025-01-24 11:49 | Hospitalist Progress Note ---
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 Patient presented via EMS from [facility] after he went from sitting to standing and had a syncopal episode. He is being admitted for syncopal workup including telemetry monitoring, suspect orthostatic. #syncope - orthostatic this morning has been negative, though pt has had IV fluids running - he is also bradycardic at rest, with HR in the 40s. We did ambulatory pulse evaluation. He walked without difficulty and his HR was in the 70s - 1L NSS bolus ordered in ED; continue fluid resuscitation with LR at 80 mL/hr x 1L overnight - Head noncon CT head was negative for acute abnormalities, does have extensive chronic small vessel ischemic changes in the white matter - echocardiogram ordered - fall precautions - hold labetalol - monitor on telemetry #UTI - UA is certainly abnormal with nitrite and bacteria present - started Ceftriaxone IV daily on 01/24 - UCx pending #SHELLY/hypomagnesemia - Cr increased from 1.87 to 2.41 (appears to be worsening over past few years), BUN 49, K+ 4.3, mag 1.8. Patient with dry mucus membranes, H&H elevated (hemoconcentrated). - Cr improving with fluids - replete and monitor magnesium - encourage oral hydration #HTN - holding labetalol, continue amlodipine. - given bradycardia, cont holding labetalol - increased amlodipine - monitor BP closely #HLD - continue asa and statin #alcohol use disorder - hx of, currently denies use. Continue folic acid and thiamine. #hypothyroidism - no previous hx of. TSH 4.631, T4 0.58 on admission. - follow up in out patient setting - unlikely to be contributing to above VTE ppx: SCDs and start heparin subq Dispo: cont telemetry, pending UCx, ECHO report pending Admission and Anticipated Discharge Date Admission Date: January 23, 2025 Subjective No acute events overnight Currently states he is feeling much better. He reports drinking 3-4 cups of coffee per day and limited fluid intake. Prior to the syncopal episode, he was trying to help his up and when he stood up, he felt dizzy and passed out. , who witnessed the episode says he was out only for few seconds. Review of Systems Review of Systems: Comprehensive ROS completed and is otherwise negative. Physical Exam Physical Exam: Gen: no acute distress, lying in bed comfortable HEENT: NC/AT, MMM Lungs: nonlabored breathing, CTAB CVS: s1s2nl, RRR Abd: nl bowel sounds, soft, NT / ND : no vidal Ext: no edema Neuro: AAOx3 Psych: calm cooperative Results & Data Results & Data Vital Signs (Past 12 Hours) Vital Signs Temp Pulse Pulse Pulse Resp BP BP 01/24/25 11:20 36.6 C 54 L 18 146/61 H 01/24/25 07:32 36.4 C L 43 L 18 151/75 H 01/24/25 06:45 48 L 01/24/25 02:37 36.4 C L 54 L 16 118/66 01/24/25 00:53 36.2 C L 53 L 18 141/66 H 01/24/25 00:30 51 L 01/24/25 00:00 52 L 17 109/66 01/23/25 23:53 58 L Pulse Ox O2 Del Method 01/24/25 11:20 99 Room Air 01/24/25 07:32 94 Room Air 01/24/25 06:45 01/24/25 02:37 97 Room Air 01/24/25 00:53 95 Room Air 01/24/25 00:30 01/24/25 00:00 95 Room Air 01/23/25 23:53 PG Care Time/CCT Total # of Minutes Spent Total Time Spent with Patient: Total time spent is greater than 50% in coordination of care (as documented) at patient's floor/unit and/or counseling patient: Coding Level of Care Code 12560 SUB INP/OBS CARE 3/50MIN Diagnoses Syncope and collapse R55 Acute kidney injury superimposed on CKD N17.9; N18.9 Hypomagnesemia E83.42 Hypertension I10
--- NOTE | 2025-01-24 15:38 | XCELERA ---
[id number]
[2025-01-24] MEDS: HEPARIN SOD 5,000 UNIT/0.5 ML VIAL SQ SCH (20:10)
[2025-01-24] MEDS: ATORVASTATIN 40 MG TAB PO SCH (20:11)
[2025-01-25 07:08] LABS: Hematocrit (blood only) 28.3 % (42.0-52.0); Hemoglobin 9.4 g/dl (14.0-18.0); Mean Corpuscular Hemoglobin 31.3 pg (25.0-34.0); Mean Corpuscular Volume 94.3 fL (80.0-100.0); Platelet Count 250 K/uL (130-400); RDW Standard Deviation 47.4 fL (36.4-46.3); Red Blood Count 3.00 M/uL (4.70-6.10); White Blood Count 5.83 K/ul (4.8-10.8)
[2025-01-25 07:33] LABS: Anion Gap 4.0 (3-11); Blood Urea Nitrogen 41.0 mg/dl (6-23); Calcium 9.0 mg/dl (8.6-10.3); Carbon Dioxide 24.0 mmol/L (21-32); Chloride 110.0 mmol/L (98-107); Creatinine Clr Calc Pharmacy 21.4 ml/min; Glucose 90.0 mg/dl (70-99(Fasting)); Magnesium 1.7 mg/dl (1.7-2.4); Potassium 4.5 mmol/L (3.5-5.1); Sodium 138.0 mmol/L (136-145)
[2025-01-25 08:27] LABS: Iron 61.0 mcg/dl (35-175); Total Iron Binding Cap Calc 287.0 mcg/dl (250-450); Transferrin 205.0 mg/dl (200-360); Transferrin (FE) Percent Satur 21.0 % (20-50)
[2025-01-25 08:48] LABS: Ferritin 30.3 ng/ml (8-388)
[2025-01-25 09:21] LABS: Folate (Folic Acid),Ser orPlas > 22.30 ng/ml (>5.38)
[2025-01-25 09:22] LABS: Vitamin B12 301 pg/ml (180-914)
[2025-01-25] MEDS: CYANOCOBALAMIN (B-12) 500 MCG TABLET PO SCH (11:11)
[2025-01-25] MEDS: IRON SUCROSE 300 MG in SODIUM CHLORIDE 0.9% 250 ML IV ONE (12:25)
--- NOTE | 2025-01-25 12:48 | Ultrasound Report ---
ULTRASOUND KIDNEYS AND BLADDER CLINICAL HISTORY: Acute on chronic renal insufficiency. COMPARISON STUDY: Renal ultrasound dated 03/02/2012 TECHNIQUE: Real-time, grayscale, and color flow sonography of the kidneys and bladder is performed. I mages are reviewed in the transverse and longitudinal planes. FINDINGS: Kidneys: The kidneys are normal in size and echotexture. The right kidney measures 8.5 x 4.4 x 4.9 cm and the left kidney measures 9.0 x 4.7 x 5.6 cm. There is no hydronephrosis. No shadowing renal mack culi are identified. A subcentimeter cyst is noted on the right. There is no sonographic evidence of contour deforming renal mass lesion. No perinephric fluid is identified. Bladder: The bladder wall appears thickened/trabeculated indicating chronic outlet obstruction. Bilat eral ureteral jets were seen. IMPRESSION: 1. The kidneys are normal in size and without hydronephrosis. 2. The appearance of the bladder wall suggests chronic outlet obstruction. ACT 112: Negative or not required by law. Electronically signed by: Leroy Galdamez M.D. 01/25/2025 12:47 PM
--- NOTE | 2025-01-25 21:31 | Hospitalist Progress Note ---
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 Patient presented via EMS from [facility] after he went from sitting to standing and had a syncopal episode. He is being admitted for syncopal workup including telemetry monitoring, suspect orthostatic. #syncope - orthostatic this morning has been negative, though pt has had IV fluids running - he is also bradycardic at rest, with HR in the 40s. We did ambulatory pulse evaluation. He walked without difficulty and his HR was in the 70s - 1L NSS bolus ordered in ED; continue fluid resuscitation with LR at 80 mL/hr x 1L overnight - Head noncon CT head was negative for acute abnormalities, does have extensive chronic small vessel ischemic changes in the white matter - echocardiogram ordered - fall precautions - hold labetalol - monitor on telemetry #UTI - UA is certainly abnormal with nitrite and bacteria present - started Ceftriaxone IV daily on 01/24 - UCx pending #SHELLY/hypomagnesemia - Cr increased from 1.87 to 2.41 (appears to be worsening over past few years), BUN 49, K+ 4.3, mag 1.8. Patient with dry mucus membranes, H&H elevated (hemoconcentrated). - Cr improving with fluids - replete and monitor magnesium - encourage oral hydration #HTN - holding labetalol, continue amlodipine. - given bradycardia, cont holding labetalol - increased amlodipine - monitor BP closely #HLD - continue asa and statin #alcohol use disorder - hx of, currently denies use. Continue folic acid and thiamine. #hypothyroidism - no previous hx of. TSH 4.631, T4 0.58 on admission. - follow up in out patient setting - unlikely to be contributing to above VTE ppx: SCDs and start heparin subq Dispo: cont telemetry, pending UCx, ECHO report pending Admission and Anticipated Discharge Date Admission Date: January 24, 2025 Results & Data Results & Data Vital Signs (Past 12 Hours) Vital Signs Temp Pulse Pulse Resp BP Pulse Ox O2 Del Method 01/25/25 19:32 37.2 C 61 18 167/76 H 97 Room Air 01/25/25 15:18 36.7 C 52 L 18 157/74 H 96 Room Air 01/25/25 13:04 60 01/25/25 11:07 36.6 C 51 L 18 159/82 H 95 Room Air Laboratory Results Laboratory Results - last 24 hr 01/25/25 06:38 WBC 5.83 RBC 3.00 L Hgb 9.4 L Hct 28.3 L MCV 94.3 MCH 31.3 MCHC 33.2 RDW Std Deviation 47.4 H RDW Coeff of Herminio 14.0 Plt Count 250 MPV 9.8 Sodium 138 Potassium 4.5 Chloride 110 H Carbon Dioxide 24 Anion Gap 4 BUN 41 H Creatinine 2.36 H Est Cr Clr Drug Dosing 21.4 eGFR 27.49 BUN/Creatinine Ratio 17.4 Glucose 90 Calcium 9.0 Phosphorus 3.4 Magnesium 1.7 Iron 61 TIBC 287 Transferrin 205 Transferrin % Sat 21 Ferritin 30.3 Vitamin B12 301 Folate > 22.30 Diagnostic Findings Microbiology 01/24/25 05:45 Urine,Clean Catch Urine Culture - Preliminary Klebsiella pneumoniae PG Care Time/CCT Total # of Minutes Spent Total Time Spent with Patient: Total time spent is greater than 50% in coordination of care (as documented) at patient's floor/unit and/or counseling patient: Coding Diagnoses Syncope and collapse R55 Acute kidney injury superimposed on CKD N17.9; N18.9 Hypomagnesemia E83.42 Hypertension I10
[2025-01-26] MEDS: LEVOTHYROXINE SODIUM 25 MCG TABLET PO SCH (05:45)
[2025-01-26 07:48] VITALS: BP 126/71; TEMP 98.4; O2SAT 93
[2025-01-26 08:58] LABS: Hematocrit (blood only) 31.1 % (42.0-52.0); Hemoglobin 10.5 g/dl (14.0-18.0)
[2025-01-26 09:16] LABS: Anion Gap 6.0 (3-11); Blood Urea Nitrogen 40.0 mg/dl (6-23); Calcium 9.5 mg/dl (8.6-10.3); Carbon Dioxide 25.0 mmol/L (21-32); Chloride 107.0 mmol/L (98-107); Creatinine Clr Calc Pharmacy 21.3 ml/min; Glucose 89.0 mg/dl (70-99(Fasting)); Potassium 4.2 mmol/L (3.5-5.1); Sodium 138.0 mmol/L (136-145)
--- NOTE | 2025-01-26 13:18 | Discharge Summary ---
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 Patient presented via EMS from [facility] after he went from sitting to standing and had a syncopal episode. He is being admitted for syncopal workup including telemetry monitoring, suspect orthostatic. #syncope - orthostatic this morning has been negative, though pt has had IV fluids running - he is also bradycardic at rest, with HR in the 40s. We did ambulatory pulse evaluation. He walked without difficulty and his HR was in the 70s - 1L NSS bolus ordered in ED; continue fluid resuscitation with LR at 80 mL/hr x 1L overnight - Head noncon CT head was negative for acute abnormalities, does have extensive chronic small vessel ischemic changes in the white matter - echocardiogram ordered - fall precautions - hold labetalol - monitor on telemetry #UTI - UA is certainly abnormal with nitrite and bacteria present - started Ceftriaxone IV daily on 01/24 - UCx pending #SHELLY/hypomagnesemia - Cr increased from 1.87 to 2.41 (appears to be worsening over past few years), BUN 49, K+ 4.3, mag 1.8. Patient with dry mucus membranes, H&H elevated (hemoconcentrated). - Cr improving with fluids - replete and monitor magnesium - encourage oral hydration #HTN - holding labetalol, continue amlodipine. - given bradycardia, cont holding labetalol - increased amlodipine - monitor BP closely #HLD - continue asa and statin #alcohol use disorder - hx of, currently denies use. Continue folic acid and thiamine. #hypothyroidism - no previous hx of. TSH 4.631, T4 0.58 on admission. 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 Patient presented via EMS from [facility] after he went from sitting to standing and had a syncopal episode. He is being admitted for syncopal workup including telemetry monitoring. Patient seen at bedside. He stated that he was visiting his and she needed help in the bathroom because she is weak so he went from sitting to standing and just passed out, nursing was at bedside and helped lower him to the ground. He denies any head strike. He stated he had no symptoms prior, denies any dizziness, chest pain, dyspnea prior to the episode. After the episode he did feel dizzy which is different for him from previous episodes. He has had episodes like this similar in the past a couple years ago when he went from sitting to standing however had no symptoms afterwards, so he was concerned and wanted to come in this evening. He has had no prior workups for this. He currently feels well at bedside. He stated he took all his blood pressure medications this morning, is due for evening labetalol. Stated that he had a good day of meals and fluid intake, does not feel dehydrated. He denies any dysuria, hematuria, flank pain. He denies any nicotine use. He was a former alcohol user however currently denies any symptoms. He wishes to be DNR/DNI. Discharge Plan Discharge Items Patient Disposition: Personal Assisted Reason For Visit: SYNCOPE Discharge Diagnosis: 1. syncope - due to bradycardia from labetalol? -outpatient 30-day monitor advised to rule out pauses, etc. 2. klebsiella urinary tract infection 3. low-normal vitamin B12 level 4. iron deficiency anemia 5. chronic kidney disease stage 4; discharge creatinine 2.3 6. new diagnosis of mild hypothyroidism Condition on Discharge: Good Activity: Resume your previous activity Non-emergency contact: Primary Care Provider Call non-emergency contact if: you have any medication questions and your symptoms worsen Follow-up/Referrals: Daniel Muñoz DO [Physician] - (please refer to Dr Muñoz or one of his partners at [facility] for CKD stage 4; ideally within 2-3 weeks.) Milton Cazares [Primary Care Provider] - Diet: Regular Addtl Attending Provider Instructions: Mr Glass was hospitalized due to an episode of syncope. The syncope may have been due to low blood pressure and low heart rate as his heart rate was in the 40s upon presentation. He was taking labetalol prior and the labetalol likely contributed to this. Labetalol has been stopped. Course was complicated by klebsiella urinary tract infection. He received several doses of IV rocephin followed by oral cephalexin. Creatinine was elevated upon presentation at 2.4. Despite IV fluids there was no significant change in the creatinine. His creatinine at discharge was 2.3. He will need to follow with [facility] nephrology for his chronic kidney disease stage 4. In addition he has mild anemia - likely a combination of low iron and low vitamin B12. He received 1 dose of IV venofer 300mg and was started on B12 supplementation by mouth. Finally, it appears he has the start of mild hypothyroidism as TSH level was mildly high and free T4 was mildly low. He was initiated on synthroid 25mcg once daily. Of note -- echocardiogram was performed and showed normal heart function and normal valve function. Kidney ultrasound did not show any significant anatomical abnormalities. Recommendations - 1. 30-day event monitor to rule out sinus pauses, heart block, etc as the cause of his syncope; this will be mailed to [facility] 2. start the following - -synthroid 25mcg daily each morning before breakfast -vitamin B12 1000mcg daily x 6 months -cephalexin 250mg twice daily x 7 days 3. recheck BMP within 1 week to ensure stable creatinine 4. recheck TSH level in 6 weeks 5. recheck vitamin B12 level in 3-4 months to ensure correction; vitamin B12 level was 301 6. follow-up - see separate section Return to [facility] if - -you have fever over 100 degrees -you have recurrent syncope (passing out spell) -you have shortness of breath or chest pains -you have severe diarrhea (3 or more liquid stools in 24 hours) -any other concerns It was our pleasure to care for Mr Glass! -Myles Malcolm, [facility] Pending Studies at Discharge: No Stand-Alone Forms: My [facility] [employer], Smoking Cessation Skilled Items Patient informed of condition?: Yes DNR: Yes Discharge Level of Care: Other Communicable Disease: No Discharge Prognosis: Stable Lines: None Urinary Catheter: No Medications and DC Order Prescriptions: New cephalexin 250 mg Capsule 250 mg PO BID 7 Days Qty: 14 0RF levothyroxine [Synthroid] 25 mcg Tablet 25 mcg PO DAILYBB Qty: 30 5RF cyanocobalamin (vitamin B-12) 1,000 mcg tablet 1,000 mcg PO DAILY Qty: 30 5RF Rx Instructions: take for 6 months then stop. Continued folic acid 1 mg tablet See Rx Instructions .ROUTE .COMPLEX Qty: 90 0RF Dose Instruction: TAKE 1 TABLET EVERY MORNING Rx Instructions: TAKE 1 TABLET EVERY MORNING atorvastatin 40 mg tablet 40 mg PO HS Qty: 90 1RF Rx Instructions: TAKE 1 TABLET AT BEDTIME amlodipine 5 mg tablet 5 mg PO DAILY Qty: 90 3RF multivitamin Tablet 1 tab PO QAM Qty: 90 1RF thiamine HCl (vitamin B1) 100 mg tablet 100 mg PO QAM Qty: 90 3RF donepezil 10 mg tablet 10 mg PO DAILY aspirin 81 mg tablet,chewable 81 mg PO HS Discontinued labetalol 100 mg tablet 100 mg PO BID Qty: 180 1RF Discharge Orders: Discharge Order (Routine); Ordered 01/26/25 Ordered By: Myles Malcolm Admission Data Admit Date/Time: 01/24/25 11:41 Attending Provider: Myles Malcolm Admit Provider: Samir Garcia Primary Care Provider: Milton Cazares Other Providers: Samir Garcia Hospital Stay Data Consultations 01/23/25 21:34 ED Decision to Admit Stat Diagnostic Imagining Performed 01/23/25 21:[address] [CT head/brain wo con] Stat 01/25/25 07:58 US renal/blad retro comp Routine Pending Results Patient Have Any Pending Studies at Discharge: No Discharge Instructions Given to Patient (Per Discharging Provider) Mr Glass was hospitalized due to an episode of syncope. The syncope may have been due to low blood pressure and low heart rate as his heart rate was in the 40s upon presentation. He was taking labetalol prior and the labetalol likely contributed to this. Labetalol has been stopped. Course was complicated by klebsiella urinary tract infection. He received several doses of IV rocephin followed by oral cephalexin. Creatinine was elevated upon presentation at 2.4. Despite IV fluids there was no significant change in the creatinine. His creatinine at discharge was 2.3. He will need to follow with [facility] for his chronic kidney disease stage 4. In addition he has mild anemia - likely a combination of low iron and low vitamin B12. He received 1 dose of IV venofer 300mg and was started on B12 supplementation by mouth. Finally, it appears he has the start of mild hypothyroidism as TSH level was mildly high and free T4 was mildly low. He was initiated on synthroid 25mcg once daily. Of note -- echocardiogram was performed and showed normal heart function and normal valve function. Kidney ultrasound did not show any significant anatomical abnormalities. Recommendations - 1. 30-day event monitor to rule out sinus pauses, heart block, etc as the cause of his syncope; this will be mailed to [facility] 2. start the following - -synthroid 25mcg daily each morning before breakfast -vitamin B12 1000mcg daily x 6 months -cephalexin 250mg twice daily x 7 days 3. recheck BMP within 1 week to ensure stable creatinine 4. recheck TSH level in 6 weeks 5. recheck vitamin B12 level in 3-4 months to ensure correction; vitamin B12 level was 301 6. follow-up - see separate section Return to [facility] if - -you have fever over 100 degrees -you have recurrent syncope (passing out spell) -you have shortness of breath or chest pains -you have severe diarrhea (3 or more liquid stools in 24 hours) -any other concerns It was our pleasure to care for Mr Glass! -Myles Malcolm, hospital medicine Coding Diagnoses Syncope and collapse R55 Acute kidney injury superimposed on CKD N17.9; N18.9 Hypomagnesemia E83.42 Hypertension I10
[2025-01-26 13:35] VITALS: PULSE 52
--- NOTE | 2025-01-28 05:25 | Electrocardiogram Report ---
Test Reason : Blood Pressure : */* mmHG Vent. Rate : 46 BPM Atrial Rate : 46 BPM P-R Int : 164 ms QRS Dur : 82 ms QT Int : 472 ms P-R-T Axes : * -15 -53 degrees QTcB Int : 413 ms Sinus bradycardia Inferior infarct , age undetermined Abnormal ECG When compared with ECG of 29-Jun-2019 08:56, QRS voltage has decreased Inferior infarct is now Present Nonspecific T wave abnormality now evident in Inferior leads Confirmed by Berry Palafox ([id number]) on 01/28/2025 5:25:03 AM Referred By: Milton [facility] Confirmed By: Berry Palafox
== END 2025-01-26 14:43 | disposition home or self-care (01) | DRG 312 ==
LOC: 2N 19:48 → ED 19:48 → SUATTDRO 21:59 → 2N 01-24 00:09 → SUATTDRO 01-24 11:41